=== PATIENT | male | born 1965 | race Caucasian/White ===

== ENCOUNTER 2016-05-31 23:55 | Inpatient (IN) | payer BC ==
--- NOTE | ~2016-05-31 | EGD ---
EGD REPORT [facility] [address] [place]. [address] NAME: CARON SOSA : 61 STATUS : ADM IN PAT#: [id number] AGE: 50 ADM/REG DATE : 06/01/16 MR#: [id number] REPORT SERV DATE: 06/02/16 DICTATED BY: CRYS ALVARADO DATE: 06/02/16 REPORT STATUS : Draft TRANSCRIBED BY: [facility] DATE: 06/02/16 Endoscopy Center Patient Name: Caron Sosa Date of : 1965 Attending MD: CRYS ALVARADO MD Procedure Date No Time: 06/02/2016 Procedure: Colonoscopy Indications: Melena. Patient Profile: Informed consent was obtained from the patient by me prior to the procedure. Risks, benefits, and alternatives were discussed including the risk of bleeding, perforation, infection, reaction to medicine, missed lesion, and cardiopulmonary complications. Referring MD: RG PARR Medicines: Monitored Anesthesia Care Complications: No immediate complications. Procedure: Pre-Anesthesia Assessment: - ASA Grade Assessment: III - A patient with severe systemic disease. After I obtained informed consent, the scope was passed under direct vision. Throughout the procedure, the patient's blood pressure, pulse, and oxygen saturations were monitored continuously. The CF [id number] was introduced through the anus and advanced to the cecum, identified by appendiceal orifice and ileocecal valve. The colonoscope was slowly withdrawn with careful examination all mucosal surfaces including specific attention around flexures and tip deflection behind folds; retroflexion performed in rectum. The colonoscopy was performed without difficulty. The patient tolerated the procedure well. The quality of the bowel preparation was adequate. The ileocecal valve, appendiceal orifice, terminal ileum and rectum were photographed. Findings: The terminal ileum appeared normal. A sessile polyp was found in the transverse colon. The polyp was 5 mm in size. The polyp was removed with a cold biopsy forceps. Resection and retrieval were complete. A flat polyp was found in the descending colon. The polyp was 8 mm in size. The polyp was removed with a cold snare. Resection and retrieval were complete. A sessile polyp was found in the sigmoid colon. The polyp was 5 mm in size. The polyp was removed with a cold biopsy forceps. Resection and retrieval were complete. EGD REPORT [id number] [place]. [address] NAME: CARON SOSA : [birth year] STATUS : ADM IN [facility]#: [id number] AGE: 50 ADM/REG DATE : 06/01/16 MR#: [id number] REPORT SERV DATE: 06/02/16 DICTATED BY: CRYS ALVARADO DATE: 06/02/16 REPORT STATUS : Draft TRANSCRIBED BY: [employer] [facility] DATE: 06/02/16 Green contents throughout including Ti; no blood. Impression: - The examined portion of the ileum was normal. - One 5 mm polyp in the transverse colon. Resected and retrieved. - One 8 mm polyp in the descending colon. Resected and retrieved. - One 5 mm polyp in the sigmoid colon. Resected and retrieved. Recommendation: - Await pathology results. - Repeat colonoscopy for surveillance based on pathology results. - Transfuse 2 units PRBC. - D/c home tomorrow if no further bleeding. - Plan outpatient small bowel pillcam--I will arrange. Procedure Code(s): --- Professional --- 77665, Colonoscopy, flexible, proximal to splenic flexure; with removal of tumor(s), polyp(s), or other lesion(s) by snare technique 70208, 59, Colonoscopy, flexible, proximal to splenic flexure; with biopsy, single or multiple Diagnosis Code(s): --- Professional --- D12.5, Benign neoplasm of sigmoid colon D12.4, Benign neoplasm of descending colon D12.3, Benign neoplasm of transverse colon K92.1, Melena CPT copyright 2013 [employer]. All rights reserved. The codes documented in this report are preliminary and upon assistant editor review may be revised to meet current compliance requirements. CRYS ALVARADO MD 06/02/2016 8:56 AM This report has been signed electronically. Number of Addenda: 0 Note Initiated On: 06/02/2016 8:02 AM Scope Withdrawal Time 0 hours 11 minutes 12 seconds [address] [place] [id number]
--- NOTE | ~2016-05-31 | CN ---
Consultation Report [address] [place]. [address] NAME: CARON SOSA : [birth year] STATUS : ADM IN [facility]#: [id number] AGE: 50 ADM/REG DATE : 06/01/16 MR#: [id number] REPORT SERV DATE: 06/01/16 DICTATED BY: PRESLEY PALOMARES DATE: 06/01/16 REPORT STATUS : Draft TRANSCRIBED BY: MODL DATE: 06/01/16 GI CONSULTATION DATE OF CONSULTATION: 06/01/2016 REASON FOR CONSULTATION: Regarding melena. HISTORY OF PRESENT ILLNESS: This is a 50-year-old man, who was recently traveling and developed melena. He has had melena for the past four to five days. No diarrhea or constipation. No significant abdominal pain other than intermittent right upper quadrant discomfort, very mild and occasional. No GERD or dysphagia. No NSAIDs. No recent history of upper endoscopy. He had colonoscopy four months ago by Dr. Quintanilla, in [place], which showed polyps, but was otherwise negative per patient's report. MEDICAL HISTORY: Colon polyps, hypertriglyceridemia, lung cancer 2010, surgical resection left knee surgery, skin cancer basal cell carcinoma. ALLERGIES: NONE. MEDICATIONS: Tylenol, Lofibra, Christine, multivitamin, Breo Ellipta. FAMILY HISTORY: Remarkable for colorectal cancer in mother. SOCIAL HISTORY: Does not use alcohol or tobacco significantly. REVIEW OF SYSTEMS: A complete review of systems was obtained and negative except that noted in the history of present illness. PHYSICAL EXAMINATION: VITAL SIGNS: He is currently afebrile. Temperature is 97.9, pulse 85, respirations 16, blood pressure 140/78. HEENT: Sclerae anicteric. NECK: Supple without lymphadenopathy. Pharynx is pink without exudate. LUNGS: Clear to auscultation bilaterally. HEART: Regular rate and rhythm. S1, S2 are heard without rubs or gallops. ABDOMEN: Normal bowel sounds. Belly is soft, nontender, nondistended without hepatosplenomegaly. EXTREMITIES: No pedal edema or rash. NEUROLOGIC: Alert and oriented without focal deficit. Muscle exam is nontender. DATA: White blood cell count is 7, hematocrit initially 27.5 now 25, MCV 91, platelets 268. INR 1.2. BUN 13, creatinine 1.01. Liver tests normal. Consultation Report [address] [place]. [address] NAME: CARON SOSA : [birth year] STATUS : ADM IN PAT#: [id number] AGE: 50 ADM/REG DATE : 06/01/16 MR#: [id number] REPORT SERV DATE: 06/01/16 DICTATED BY: PRESLEY PALOMARES DATE: 06/01/16 REPORT STATUS : Draft TRANSCRIBED BY: MODL DATE: 06/01/16 IMPRESSION: 1. Melena, questionable peptic ulcer disease versus other. 2. Family history of colorectal cancer. RECOMMENDATIONS: 1. Monitor hematocrit and transfuse as necessary. 2. Continue Protonix. 3. EGD to follow. If negative, then colonoscopy. CC/JENS Presley Palomares M.D. / [id number] CC: MD Kiel Key M.D.
--- NOTE | ~2016-05-31 | HP ---
History And Physical [address] [facility] [place]. [address] NAME: CARON SOSA : [birth year] STATUS : ADM IN PAT#: [id number] AGE: 50 ADM/REG DATE : 06/01/16 MR#: [id number] REPORT SERV DATE: 06/01/16 DICTATED BY: VENU WELSH DATE: 06/01/16 REPORT STATUS : Draft TRANSCRIBED BY: MODL DATE: 06/01/16 DATE OF ADMISSION: 06/01/2016 CHIEF COMPLAINT: A 50-year-old male presenting with melena for several days and weakness with evidence of anemia. HISTORY OF PRESENT ILLNESS: The patient's history was obtained through careful interview with the patient and . The patient apparently has been on a cruise to the [facility] and [facility] in the [facility] but on 05/28/2016, he began to notice black stool that has persisted over last several days. Finally, the cruise had landed at [facility], and the patient was first evaluated in the hospital there, and it was clear that he was having GI bleed, so he just on day of admission caught a flight back to [place] and immediately was driven here to the emergency department for further evaluation. He describes epigastric discomfort that just came on tonight. He describes it as "just a pain" in quality, 1/10 severity. He has had no bright red blood per rectum. No gastroesophageal reflux disorder. He has felt "dehydrated" and has had dizziness and orthostatic symptoms. He has also had a very poor appetite. Does not enjoy food, has felt ill. No nausea or vomiting. No shortness of breath. No nonsteroidal anti-inflammatory drug use. REVIEW OF SYSTEMS: Otherwise, a 14-point review of systems was obtained and was negative. PAST MEDICAL HISTORY: 1. Lung cancer 2010 but no chemotherapy, no radiation just surgical resection. 2. Elevated triglycerides. 3. Allergies. 4. No cardiac disease. No other lung disease. PAST SURGICAL HISTORY: 1. Left knee surgery. 2. Two-thirds of his right lung removed. 3. Skin cancer basal cell carcinoma. ALLERGIES: NO KNOWN DRUG ALLERGIES. SOCIAL HISTORY: He did smoke for six months when he was 16 years old but has not smoked ever since. No alcohol abuse. He is . Lives in [place], [place]. He has a 20-year- History And Physical [facility] [address] [place]. [address] NAME: CARON SOSA : [birth year] STATUS : ADM IN [facility]#: [id number] AGE: 50 ADM/REG DATE : 06/01/16 MR#: [id number] REPORT SERV DATE: 06/01/16 DICTATED BY: VENU WELSH DATE: 06/01/16 REPORT STATUS : Draft TRANSCRIBED BY: JENS DATE: 06/01/16 old son. 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 FAMILY HISTORY: Cancer. CURRENT MEDICATIONS: Include Tylenol, Lofibra, Christine, multivitamin, Breo Ellipta. PHYSICAL EXAMINATION: VITAL SIGNS: Temperature 98.4, pulse 111, blood pressure 136/75, respiratory rate 18, O2 saturation 98% on room air. GENERAL: A pleasant, cooperative male. No evidence of acute distress. HEENT: Pupils are equal, round, and reactive to light. No conjunctival pallor. No scleral icterus. Nares are patent. Oropharynx is clear of obstruction. Moist mucous membranes. NECK: Trachea midline. No thyromegaly. LYMPH: No cervical lymphadenopathy. No supraclavicular lymphadenopathy. RESPIRATORY: Clear to auscultation at bases. No wheezes, rales, or rhonchi. Normal respiratory effort. CARDIOVASCULAR: Tachycardic, regular rhythm. No murmurs, rubs, or gallops. No extremity edema is appreciated. ABDOMEN: Significant epigastric abdominal pain but no guarding, no rebound. Nontender elsewhere. No hepatosplenomegaly. DERMATOLOGICAL: Warm and dry extremities. No pallor, no cyanosis. PSYCHIATRIC: Normal affect. Good mood. Alert and oriented x3. LABORATORY DATA: White blood cell count 7, hemoglobin 9, hematocrit 27, platelets 268. Sodium 144, potassium 3.7, chloride 107, bicarb 27, BUN 13, creatinine 1.4, and glucose 108. ASSESSMENT AND PLAN: 1. Upper gastrointestinal bleed. Placed on IV proton pump inhibitor drip. Consult critical care paramedic, Dr. Dinh. 2. Acute blood loss anemia. Type and cross and have available for possible transfusion ?. Monitor H and H closely. KPL/MODL Venu Welsh M.D. / [id number] CC: MD Kiel Key M.D.
--- NOTE | ~2016-05-31 | EGD ---
EGD REPORT [facility] [address] [place]. [address] NAME: CARON SOSA : 61 STATUS : ADM IN PAT#: [id number] AGE: 50 ADM/REG DATE : 06/01/16 MR#: [id number] REPORT SERV DATE: 06/01/16 DICTATED BY: CRYS ALVARADO DATE: 06/01/16 REPORT STATUS : Draft [facility] DATE: 06/01/16 Endoscopy Center Patient Name: Caron Sosa Date of : 1965 Attending MD: CRYS ALVARADO MD Procedure Date No Time: 06/01/2016 Procedure: Upper GI endoscopy Indications: Melena; no acid suppression. Patient Profile: Informed consent was obtained from the patient by me prior to the procedure. Risks, benefits, and alternatives were discussed including the risk of bleeding, perforation, infection, reaction to medicine, missed lesion, and cardiopulmonary complications. Referring MD: RG PARR Medicines: Monitored Anesthesia Care Complications: No immediate complications. Procedure: Pre-Anesthesia Assessment: - ASA Grade Assessment: III - A patient with severe systemic disease. After obtaining informed consent, the endoscope was passed under direct vision. Throughout the procedure, the patient's blood pressure, pulse, and oxygen saturations were monitored continuously. The GIF [id number] was introduced through the mouth, and advanced to the third part of duodenum. The endoscope was withdrawn with careful examination all mucosal surfaces including retroflexion stomach. The upper GI endoscopy was accomplished without difficulty. The patient tolerated the procedure well. Findings: The examined duodenum was normal except as below. There was a medium-sized lipoma, 15 mm in diameter, in the third part of the duodenum; soft with normal overlying mucosa; positive pillow sign. The entire examined stomach was normal. The examined esophagus was normal. The esophagus and gastroesophageal junction were examined with white light. There was no visual evidence of Simon's esophagus. Impression: - Normal examined duodenum. - Duodenal lipoma. - Normal stomach. - Normal esophagus. - There is no endoscopic evidence of Simon's esophagus. EGD REPORT [place] [place]. [address] NAME: CARON SOSA : [birth year] STATUS : ADM IN [facility]#: [id number] AGE: 50 ADM/REG DATE : 06/01/16 MR#: [id number] REPORT SERV DATE: 06/01/16 DICTATED BY: CRYS ALVARADO. DATE: 06/01/16 REPORT STATUS : Draft TRANSCRIBED BY: MtoV DATE: 06/01/16 Recommendation: Colonoscopy tomorrow. Procedure Code(s): --- Professional --- 70490, Esophagogastroduodenoscopy, flexible, transoral; diagnostic, including collection of specimen(s) by brushing or washing, when performed (separate procedure) Diagnosis Code(s): --- Professional --- D17.5, Benign lipomatous neoplasm of intra-abdominal organs K92.1, Melena CPT copyright 2013 [employer]. All rights reserved. The codes documented in this report are preliminary and upon foreign exchange clerk review may be revised to meet current compliance requirements. CRYS ALVARADO MD 06/01/2016 10:40 AM This report has been signed electronically. Number of Addenda: 0 Note Initiated On: 06/01/2016 10:18 AM [facility] [address] [place], [place] [address]
--- NOTE | ~2016-05-31 | DS ---
Discharge Summary [facility] [address] [place]. [address] NAME: CARON SOSA : 61 STATUS : DIS IN PAT#: [id number] AGE: 50 ADM/REG DATE : 06/01/16 MR#: [id number] REPORT SERV DATE: 06/04/16 DICTATED BY: MARIO RANGEL DATE: 06/03/16 REPORT STATUS : Draft TRANSCRIBED BY: MODL DATE: 06/03/16 ADMISSION DATE: 06/01/2016 DISCHARGE DATE: 06/03/2016 HISTORY OF PRESENT ILLNESS: The patient is a 50-year-old male with no significant medical history, who presented to the hospital with a complaint of melena with symptomatic anemia. For further details, please refer to H and P dictated by Dr. Good Back 06/01/2016. HOSPITAL COURSE: Upon presentation to the hospital, the patient was diagnosed with upper GI bleed and GI was consulted to assist in management. For further details, please refer to the consultation note dictated by Dr. Palomares on 06/01/2016. The patient was placed n.p.o. and started on a PPI drip and was taken to the GI suite for a colonoscopy. The patient had an upper endoscopy with no significant finding. Subsequent colonoscopy was performed which noted three polyps. A 5 mm polyp was noted in the transverse colon, an 8 mm polyp was noted in the descending colon, and a 5 mm polyp was noted in the sigmoid colon. All polyps found were resected and retrieved and sent to pathology. The patient was returned to the medical suite and was monitored over night. He has remained hemodynamically stable with stabilization of his H and H. Given his hemodynamic stability and completion of workup, the patient will be discharged home to follow up with Gastroenterology. Plan has been discussed with the patient who voices understanding and is agreeable with this plan. DISCHARGE DIAGNOSES: 1. Upper gastrointestinal bleed. 2. Acute blood loss anemia. 3. Obesity. DISCHARGE PHYSICAL EXAMINATION: VITAL SIGNS: Blood pressure 135/85 with a pulse of 68, respirations 16, O2 sat 97% on room air, temperature 98.3. GENERAL: The patient was sitting in bed, in no acute distress. Appears to be stated age. HEENT: Normocephalic, atraumatic. Extraocular motors intact. Moist oral mucosa. Pupils round and reactive to light and accommodation. NECK: Trachea midline and symmetric. No thyromegaly noted. No JVD present. No masses palpated. CHEST: No scars noted. Nontender to palpation. CARDIOVASCULAR: Regular rate and rhythm. S1, S2. No murmurs, rubs, or gallops. LUNGS: Clear to auscultation bilaterally. No wheezing, rhonchi, or rales. ABDOMEN: Obese. Positive bowel sounds. Nontender. Nondistended. EXTREMITIES: No cyanosis. No clubbing. No edema. NEUROLOGIC: Alert and oriented x3. No focal deficits appreciated. PROCEDURES: The patient had an EGD on 06/01/2016. The patient also had a colonoscopy on 06/02/2016. DISPOSITION: The patient will be discharged home to follow up with GI. ACTIVITY: As tolerated. Discharge Summary [address] [address] NAME: CARON SOSA : [birth year] STATUS : DIS IN PAT#: [id number] AGE: 50 ADM/REG DATE : 06/01/16 MR#: [id number] REPORT SERV DATE: 06/04/16 DICTATED BY: MARIO RANGEL DATE: 06/03/16 REPORT STATUS : Draft TRANSCRIBED BY: JENS DATE: 06/03/16 DIET: Regular diet. Greater than 30 minutes was spent in coordinating discharge, dictation of note, medication reconciliation. RONALD/JENS Mario Rangel MD / [id number] CC: MD Kiel Key M.D.
[2016-06-01 00:31] LABS: INTERNATIONAL NORMAL RATI 1.2 UNITS (-); PARTIAL THROMBO TIME 25.4 SEC (22.5-37.2); PROTIME (NOT ORD) 14.8 SEC (12.0-14.5)
[2016-06-01 00:32] LABS: BASOPHILS 0.1 %; BASOPHILS ABSOLUTE 0.01 10/3/uL (0.0-0.16); EOSINOPHILS 1.2 %; EOSINOPHILS ABSOLUTE 0.08 10/3/uL (0.0-0.53); ER CBC TAT 0 Hrs 12 Mins; HEMATOCRIT 27.5 % (40.0-51.0); HEMOGLOBIN 9.2 g/dL (13.6-17.8); IMMATURE GRANULOCYTES 0.4 %; IMMATURE GRANULOCYTES ABSOLUTE 0.03 10/3/uL (0.0-0.11); LYMPHOCYTES 26.6 %; LYMPHOCYTES ABSOLUTE 1.85 10/3/uL (0.67-4.30); MANUAL DIFF NO %; MEAN CORPUS HGB CONC 33.5 g/dL (32.0-36.0); MEAN CORPUSCULAR HEMOGLOB 30.5 pg (26.0-34.0); MEAN CORPUSCULAR VOLUME 91.1 fL (80-100); MEAN PLATELET VOLUME 8.7 fL (9.2-13.0); MONOCYTES 8.1 %; MONOCYTES ABSOLUTE 0.56 10/3/uL (0.21-1.20); NEUTROPHILS 63.6 %; NEUTROPHILS ABSOLUTE 4.42 10/3/uL (2.02-8.40); PLATELET COUNT 268 10/3/uL (150-400); RBC DISTRIBUTION WIDTH 13.4 % (12.0-16.0); RED CELL COUNT 3.02 10/6/uL (4.7-6.1)
[2016-06-01 00:45] LABS: A/G RATIO 1.2 (0.7-1.9); ALBUMIN 3.7 G/DL (3.5-5.0); ALKALINE PHOSPHATASE 38 U/L (45-117); BUN (BLOOD UREA NITROGEN) 13 MG/DL (6-23); CALCIUM, SERUM 9.1 MG/DL (8.5-10.4); CHLORIDE, SERUM 107 MMOL/L (96-112); CO2 (CARBON DIOXIDE) 27 MMOL/L (24-34); CREATININE 1.01 MG/DL (0.70-1.30); GFR AFRICAN AMERICAN 99 ML/MIN (>=60); GFR NON AFRICAN AMERICAN 85 ML/MIN (>=60); GLUCOSE, SERUM 108 MG/DL (60-99); POTASSIUM, SERUM 3.7 MMOL/L (3.5-5.3); SGOT(AST) 29 U/L (5-40); SGPT(ALT) 53 U/L (5-65); SODIUM, SERUM 144 MMOL/L (135-148); TOTAL BILIRUBIN 0.4 MG/DL (0-1.2); TOTAL PROTEIN 6.7 G/DL (6.0-8.5)
[2016-06-01] MEDS ORDERED: ALLEGRA180 PO (03:38)
[2016-06-01] MEDS ORDERED: LOFIBRA160 MG PO (03:38)
[2016-06-01] MEDS ORDERED: MULTIVIT/MIN PO (03:39)
[2016-06-01] MEDS ORDERED: VILANTEROL INH (03:39)
[2016-06-01] MEDS ORDERED: FLUTICASONE FUROATE INH (03:39)
[2016-06-01] MEDS ORDERED: ACET500CAP PO (03:40)
[2016-06-01 07:19] LABS: HEMOGLOBIN 8.3 g/dL (13.6-17.8)
[2016-06-01 11:56] LABS: HEMOGLOBIN 8.5 g/dL (13.6-17.8)
[2016-06-01 12:49] LABS: FOLATE 36.2 NG/ML (>5.2)
[2016-06-01 17:12] LABS: HEMATOCRIT 25.6 % (40.0-51.0); HEMOGLOBIN 8.7 g/dL (13.6-17.8)
[2016-06-01 23:30] LABS: HEMATOCRIT 24.7 % (40.0-51.0); HEMOGLOBIN 8.3 g/dL (13.6-17.8)
[2016-06-02 04:49] LABS: HEMATOCRIT 23.4 % (40.0-51.0); HEMOGLOBIN 7.8 g/dL (13.6-17.8)
[2016-06-02 15:55] LABS: HEMATOCRIT 30.5 % (40.0-51.0); HEMOGLOBIN 10.4 g/dL (13.6-17.8)
[2016-06-03 06:21] LABS: BASOPHILS 0.2 %; BASOPHILS ABSOLUTE 0.01 10/3/uL (0.0-0.16); EOSINOPHILS 2.4 %; EOSINOPHILS ABSOLUTE 0.13 10/3/uL (0.0-0.53); HEMATOCRIT 30.6 % (40.0-51.0); HEMOGLOBIN 10.7 g/dL (13.6-17.8); IMMATURE GRANULOCYTES 0.4 %; IMMATURE GRANULOCYTES ABSOLUTE 0.02 10/3/uL (0.0-0.11); LYMPHOCYTES 25.9 %; LYMPHOCYTES ABSOLUTE 1.43 10/3/uL (0.67-4.30); MEAN CORPUSCULAR HEMOGLOB 30.8 pg (26.0-34.0); MEAN PLATELET VOLUME 8.7 fL (9.2-13.0); MONOCYTES 10.3 %; MONOCYTES ABSOLUTE 0.57 10/3/uL (0.21-1.20); NEUTROPHILS 60.8 %; NEUTROPHILS ABSOLUTE 3.37 10/3/uL (2.02-8.40); PLATELET COUNT 241 10/3/uL (150-400); RBC DISTRIBUTION WIDTH 15.2 % (12.0-16.0); RED CELL COUNT 3.47 10/6/uL (4.7-6.1); WHITE BLOOD CELLS 5.5 10/3/uL (4.5-10.5)
[2016-06-03 06:22] LABS: MEAN CORPUSCULAR VOLUME 88.2 fL (80-100)
[2016-06-03 06:38] LABS: A/G RATIO 1.2 (0.7-1.9); ALBUMIN 3.3 G/DL (3.5-5.0); ALKALINE PHOSPHATASE 36 U/L (45-117); CHLORIDE, SERUM 111 MMOL/L (96-112); CO2 (CARBON DIOXIDE) 24 MMOL/L (24-34); CREATININE 0.95 MG/DL (0.70-1.30); GFR AFRICAN AMERICAN 106 ML/MIN (>=60); GFR NON AFRICAN AMERICAN 92 ML/MIN (>=60); GLOBULIN 2.8 G/DL (2.5-4.1); GLUCOSE, SERUM 93 MG/DL (60-99); POTASSIUM, SERUM 3.6 MMOL/L (3.5-5.3); SGOT(AST) 25 U/L (5-40); SGPT(ALT) 39 U/L (5-65); SODIUM, SERUM 146 MMOL/L (135-148); TOTAL BILIRUBIN 0.5 MG/DL (0-1.2); TOTAL PROTEIN 6.1 G/DL (6.0-8.5)
[2016-06-03 06:44] LABS: BUN (BLOOD UREA NITROGEN) 6 MG/DL (6-23)
[2016-06-03 11:05] LABS: HEMATOCRIT 32.7 % (40.0-51.0); HEMOGLOBIN 11.3 g/dL (13.6-17.8)
== END 2016-06-03 11:33 | disposition home or self-care (01) | DRG 378 ==
LOC: ER 23:55 → 2SO 06-01 04:43
PROVIDERS: Emergency Medicine; Hospitalist; Internal Medicine Gastroenterology
PROC: 0DJ08ZZ Inspection of Upper Intestinal Tract, Via Natural or Artificial Opening Endoscopic (ICD-10-PCS; principal; 2016-06-01 10:30)
PROC: 0DBM8ZZ Excision of Descending Colon, Via Natural or Artificial Opening Endoscopic (ICD-10-PCS; 2016-06-02)
PROC: 0DBN8ZZ Excision of Sigmoid Colon, Via Natural or Artificial Opening Endoscopic (ICD-10-PCS; 2016-06-02)
PROC: 30233N1 Transfusion of Nonautologous Red Blood Cells into Peripheral Vein, Percutaneous Approach (ICD-10-PCS; 2016-06-02)
PROC: 0DBL8ZZ Excision of Transverse Colon, Via Natural or Artificial Opening Endoscopic (ICD-10-PCS; 2016-06-02 08:25)
DX: K92.2 Gastrointestinal hemorrhage, unspecified (principal); D62 Acute posthemorrhagic anemia; Z90.2 Acquired absence of lung [part of]; D17.5 Benign lipomatous neoplasm of intra-abdominal organs; D12.5 Benign neoplasm of sigmoid colon; D12.4 Benign neoplasm of descending colon; D12.3 Benign neoplasm of transverse colon; E66.9 Obesity, unspecified; G47.33 Obstructive sleep apnea (adult) (pediatric); Z68.32 Body mass index [BMI] 32.0-32.9, adult; Z85.118 Personal history of other malignant neoplasm of bronchus and lung
CPT/HCPCS: 36415; 80053; 82607; 82728; 82746; 83540; 83550; 85014; 85018; 85025; 85610; 85730; 86850; 86900; 86901; 86920; 88305; 93005; 94640; 96365; 96375; 99285; A9270-GY; C9113; J1200; J2405; P9016

== ENCOUNTER 2016-06-11 11:07 | Inpatient (IN) | payer BC ==
--- NOTE | ~2016-06-11 | HP ---
History And Physical [place] [address] [facility] [place]. [address] NAME: CARON SOSA : [birth year] STATUS : ADM IN [facility]#: [id number] AGE: 50 ADM/REG DATE : 06/11/16 MR#: [id number] REPORT SERV DATE: 06/12/16 DICTATED BY: MARIO RANGEL DATE: 06/11/16 REPORT STATUS : Draft TRANSCRIBED BY: MODL DATE: 06/11/16 DATE OF ADMISSION: 06/11/2016 CHIEF COMPLAINT: Dark tarry stools. HISTORY OF PRESENTING ILLNESS: Mr. Sosa is a 50-year-old male, who was recently discharged from the hospital on 06/04/2016 after management for upper GI bleed, who presents back to the emergency room with a complaint of melenic stools. The patient states that after his discharge that he was doing relatively well; however, on Friday he noted that his stools started getting tarry, on Friday it worsened prompting him to place a call to his GI specialist to instruct the patient to present to the emergency room. Upon presentation to the emergency room, the patient was diagnosed with upper GI bleed. Hospital Service called to admit the patient for further management. Of note, the patient was recently discharged on 06/04/2016, during the hospitalization the patient had an upper endoscopy which was negative. He also had a colonoscopy which noted three polyps which were resected, at least three retrieved. At the time of my evaluation, the patient corroborated the above story. He states that other than the melenic stool he has no other complaints and he feels well. He denies any lightheadedness, any dizziness, chest pain, palpitations. He denies any nausea, vomiting, diarrhea, fevers or chills. REVIEW OF SYSTEMS: A 14-point review of system was performed. All systems were negative except as noted in the HPI. PAST MEDICAL HISTORY: The patient has a history of upper GI bleed. PAST SURGICAL HISTORY: 1. Left knee surgery. 2. Skin cancer basal cell carcinoma. 3. The patient also had 2/3rd of his right lung removed. ALLERGIES: THE PATIENT HAS NO KNOWN DRUG ALLERGIES. SOCIAL HISTORY: The patient is currently , lives in [place], [place]. He denies any alcohol use. Reports experimental episode of alcohol use which lasted six months, since then the patient quit. No illicit drug use. FAMILY HISTORY: Significant for cancer. HOME MEDICATIONS: 1. Fenofibrate 160 mg p.o. daily. 2. Fexofenadine 180 mg p.o. daily. 3. Multivitamin one tablet p.o. daily. PHYSICAL EXAMINATION: VITAL SIGNS: Blood pressure of 145/92 with a pulse of 110, respirations 16, O2 saturation History And Physical [address] [address] NAME: CARON SOSA : [birth year] STATUS : ADM IN [facility]#: [id number] AGE: 50 ADM/REG DATE : 06/11/16 MR#: [id number] REPORT SERV DATE: 06/12/16 DICTATED BY: MARIO RANGEL DATE: 06/11/16 REPORT STATUS : Draft TRANSCRIBED BY: JENS DATE: 06/11/16 98%, and temperature 98.0. GENERAL: The patient lying in bed, in no acute distress. Appears stated age. HEENT: Normocephalic and atraumatic. Extraocular motors intact. Moist oral mucosa. Anicteric sclerae. Pupils round, reactive to light and accommodation. Trachea midline and symmetric. No JVD noted. No lymphadenopathy present. No thyromegaly present. CHEST: Nontender to palpation. No scars noted. CARDIOVASCULAR: Tachycardic. Regular rhythm. I did not appreciate any murmurs. ABDOMEN: Obese. Positive bowel sounds. Nontender. Nondistended. EXTREMITIES: No cyanosis, no clubbing, no edema. NEURO: Alert and oriented x3. No focal deficits appreciated. LABORATORY DATA: WBC 7.0, hemoglobin 11.8, hematocrit 34.5, with an MCV of 37.8, and platelets 318. Sodium 143, potassium 3.9, chloride 107, bicarb 28, BUN 14, creatinine 0.88, and glucose 92. ASSESSMENT AND PLAN: 1. Upper gastrointestinal bleed. The patient currently hemodynamically stable. He has a Blatchford score of 5 indicating low risk. PLAN: I will consult GI. Place the patient on IV fluids. Place the patient on Protonix drip. Given the patient's low Blatchford score, no indication for urgent endoscopic intervention; however, I will start the patient on a diet now and keep him n.p.o. in case GI would like to do an endoscopy. 1. Hypertension. Blood pressure during last admission was elevated. He presents today with elevated blood pressure meeting diagnostic criteria for hypertension. We will start him on amlodipine 5 mg p.o. daily and monitor. RONALD/JENS Mario Rangel MD / [id number] CC: Eh Reilly Jr, MD
--- NOTE | ~2016-06-11 | CN ---
Consultation Report [facility] [address] [place]. [address] NAME: CARON SOSA : [birth year] STATUS : ADM IN PAT#: [id number] AGE: 50 ADM/REG DATE : 06/11/16 MR#: [id number] REPORT SERV DATE: 06/12/16 DICTATED BY: KAYLA SMYTH DATE: 06/12/16 REPORT STATUS : Draft TRANSCRIBED BY: MODL DATE: 06/12/16 GI CONSULTATION DATE OF CONSULTATION: 06/12/2016 REASON FOR CONSULTATION: Evaluation and management of melena. HISTORY OF PRESENT ILLNESS: Mr. Sosa is a very pleasant 50-year-old male patient, who is known to Dr. Palomares, who was recently inpatient at [facility] from 06/01/2016 until 06/03/2016 for complaints of melena. He had been at that time having symptoms since 05/28/2016 when he began to notice black tarry stools that persisted for multiple days. At that time, he had epigastric discomfort with a decreased appetite, but no nausea or vomiting. During that hospitalization, he did require 2 units of packed red blood cells for a hemoglobin at its lowest point of 7.8. He was discharged on the with a hemoglobin of 11.3 and was having brown stools at that time. He states that he did well up until this past Friday when he began to notice that his stools were turning darker. On Friday and Friday, they were black. He had multiple episodes of tarry stools. He states that he came to the emergency room for further evaluation. When he came in, his hemoglobin was 11.8, presently it is 10.3. He has continued to have 2 to 3 bowel movements overnight that were black. This time he states he has had no abdominal pain. He has had no nausea, no vomiting, no syncope or presyncope. No dizziness. No bright red blood per rectum. During his last hospitalization, Dr. Palomares performed an EGD as well as a colonoscopy. His EGD done on 06/01/2016 showed normal examined duodenum, a duodenal lipoma, normal stomach, normal esophagus. No Simon's esophagus was found. He underwent a colonoscopy the next day with findings of a normal ileum. He had polyps in the transverse, descending, and sigmoid colon that were removed, those turned out in the sigmoid colon were hyperplastic, the rest were tubular adenomatous type. The patient has been held n.p.o. I have discussed with him we will proceed with small-bowel enteroscopy at this time. At discharge, his recommendations were he was going to undergo a small-bowel capsule exam in the outpatient setting with Dr. Palomares that is yet to be arranged. I did discuss the risks, benefits, alternatives, and complications with the patient to include, but not limited to risk of bleeding, perforation, infection, reaction to medication, as well as cardiac and pulmonary side effects; he is agreeable to proceed. PAST MEDICAL HISTORY: Positive for upper GI bleed without a cause being found, lung cancer in 2010 with surgical resection, elevated triglycerides, and hypertension. PAST SURGICAL HISTORY: Left knee surgery, lung resection, and skin cancer removal. SOCIAL HISTORY: Past tobacco. No alcohol. No illicits. . Lives independently. FAMILY HISTORY: Noncontributory from a GI standpoint. ALLERGIES: NONE. Consultation Report [address] [address] NAME: CARON SOSA : [birth year] STATUS : ADM IN [facility]#: [id number] AGE: 50 ADM/REG DATE : 06/11/16 MR#: [id number] REPORT SERV DATE: 06/12/16 DICTATED BY: KAYLA SMYTH DATE: 06/12/16 REPORT STATUS : Draft TRANSCRIBED BY: JENS DATE: 06/12/16 HOME MEDICATIONS: Cefzil, Lofibra, Christine, and multivitamin. REVIEW OF SYSTEMS: A 10-point review of systems has been obtained with pertinent positives being addressed in the history of present illness. VITAL SIGNS: Temperature 98.5, pulse 81, respirations 22, and blood pressure 115/66. PERTINENT LABORATORY DATA: Sodium 145, potassium 4.4, BUN 12, creatinine 0.94, white count 5.5, hemoglobin 10.3 hematocrit 31.6, platelet count 314, and INR 1.2. PHYSICAL EXAMINATION: NEUROLOGIC: Reveals an alert male sitting up in bed with no focal deficits. GENERAL: Cooperative and in no apparent distress. Awake, alert, and oriented x3. HEENT: Head, ears, eyes, nose, and throat are anicteric. Pupils are equal, round, reactive to light and accommodation. Normocephalic and atraumatic. NECK: No JVD. No palpable nodes. LUNGS: Clear anteriorly with normal respiratory effort exhibited. Equal expansion. CARDIOVASCULAR SYSTEM: Regular rate and rhythm. ABDOMEN: Soft and nontender with active bowel sounds in all four quadrants. No organomegaly appreciated. Obese. EXTREMITIES: No edema. Normal distal pulses. SKIN: Warm, dry, and intact. ASSESSMENT AND PLAN: 1. Melena, recent EGD negative on 06/01/2016. 2. Anemia, acute on chronic. He did receive two units of packed red blood cells in his previous hospitalization for a hemoglobin of 7.8. 3. Colon polyps. 4. Hypertension. PLAN: 1. EGD and small-bowel enteroscopy today by Dr. Patel. 2. Follow H and H. 3. He will need a small-bowel capsule endoscopy in the outpatient setting if no bleeding is found. We will follow. DORIAN/JENS LUCIAN Zepeda / [id number] Consultation Report [address] [address] NAME: CARON SOSA : 61 STATUS : ADM IN [facility]#: [id number] AGE: 50 ADM/REG DATE : 06/11/16 MR#: [id number] REPORT SERV DATE: 06/12/16 DICTATED BY: KAYLA SMYTH DATE: 06/12/16 REPORT STATUS : Draft TRANSCRIBED BY: JENS DATE: 06/12/16 CC: Eh Reilly Jr, MD Harrison Sims, M.D.
--- NOTE | ~2016-06-11 | EGD ---
EGD REPORT [facility] [address] [address] NAME: CARON SOSA : 61 STATUS : ADM IN PAT#: [id number] AGE: 50 ADM/REG DATE : 06/11/16 MR#: [id number] REPORT SERV DATE: 06/12/16 DICTATED BY: EH ANTHONY DATE: 06/12/16 REPORT STATUS : Draft TRANSCRIBED BY: [facility] DATE: 06/12/16 Endoscopy Center Patient Name: Caron Sosa Date of : 1965 Attending MD: EH ANTHONY MD Procedure Date No Time: 06/12/2016 Procedure: Small bowel enteroscopy Indications: Melena, GI bleeding source not documented by previous EGD and colonoscopy Referring MD: RG PARR Medicines: Monitored Anesthesia Care Complications: No immediate complications. Estimated blood loss: Minimal. Procedure: Pre-Anesthesia Assessment: - ASA Grade Assessment: III - A patient with severe systemic disease. After obtaining informed consent, the endoscope was passed under direct vision. Throughout the procedure, the patient's blood pressure, pulse, and oxygen saturations were monitored continuously. The GIF [id number] [id number] was introduced through the mouth, and advanced to the third part of duodenum. After obtaining informed consent, the endoscope was passed under direct vision. Throughout the procedure, the patient's blood pressure, pulse, and oxygen saturations were monitored continuously. The SIF Q180 [id number] was introduced through the mouth and advanced to the mid-jejunum. The small bowel enteroscopy was accomplished without difficulty. The patient tolerated the procedure well. The small bowel enteroscopy was accomplished without difficulty. The patient tolerated the procedure well. Findings: The examined esophagus was normal. A Dieulafoy lesion with no bleeding and stigmata of recent bleeding was found in the gastric body. This appeared to be a small ulcer with a clear vessel in the center, already in the process of healing. Fulguration to ablate the lesion to prevent bleeding by bipolar probe was successful. Estimated blood loss was minimal. There was no evidence of significant pathology in the entire examined duodenum. There was no evidence of significant pathology in the entire examined portion of jejunum. Impression: - Dieulafoy lesion of stomach with stigmata of likely EGD REPORT [address] [place]. [address] NAME: CARON SOSA : 61 STATUS : ADM IN [facility]#: [id number] AGE: 50 ADM/REG DATE : 06/11/16 MR#: [id number] REPORT SERV DATE: 06/12/16 DICTATED BY: EH ANTHONY DATE: 06/12/16 REPORT STATUS : Draft TRANSCRIBED BY: [id number] DATE: 06/12/16 recent bleeding. - Examination was otherwise normal. Recommendation: - Return patient to [facility] for ongoing care. - Use Protonix (pantoprazole) 40 mg PO BID for 8 weeks. - Clear liquid diet today. - Check hemoglobin q 12 hours until stable. Procedure Code(s): --- Professional --- 19496, Small intestinal endoscopy, enteroscopy beyond second portion of duodenum, not including ileum; with control of bleeding (eg, injection, bipolar cautery, unipolar cautery, laser, heater probe, stapler, plasma time cycle operator) Diagnosis Code(s): --- Professional --- K31.82, Dieulafoy lesion (hemorrhagic) of stomach and duodenum K92.1, Melena K92.2, Gastrointestinal hemorrhage, unspecified CPT copyright 2013 [employer] [place] [employer]. All rights reserved. The codes documented in this report are preliminary and upon top case assembler review may be revised to meet current compliance requirements. Eh Anthony MD EH ANTHONY MD 06/12/2016 11:29 AM This report has been signed electronically. Number of Addenda: 0 Note Initiated On: 06/12/2016 10:36 AM Scope Withdrawal Time 0 hours 0 minutes 0 seconds [id number] [place] [id number]
--- NOTE | ~2016-06-11 | DS ---
Discharge Summary [facility] [address] [facility] [place]. [address] NAME: CARON SOSA : 61 STATUS : DIS IN PAT#: [id number] AGE: 50 ADM/REG DATE : 06/11/16 MR#: [id number] REPORT SERV DATE: 06/14/16 DICTATED BY: JR. REILLY WILLIAM JOHN DATE: 06/13/16 REPORT STATUS : Draft TRANSCRIBED BY: MODKalen DATE: 06/13/16 ADMISSION DATE: 06/11/2016 DISCHARGE DATE: 06/13/2016 DISCHARGE DIAGNOSES: 1. Upper gastrointestinal bleed. 2. Dieulafoy lesion, status post cauterization and hemostasis. 3. Essential hypertension. 4. Colonic polyps. 5. Obesity with body mass index of 32.7. OPERATIONS, PROCEDURES, AND TREATMENTS: Include: 1. Upper endoscopy done by Dr. Eh Patel on 06/12/2016 with finding of Dieulafoy lesion of the stomach with stigmata of recent bleeding, status post cauterization and hemostasis. Otherwise, exam was room was normal. RECOMMENDATION: Protonix 40 b.i.d. for eight weeks and following H and H until stable. DISCHARGE MEDICATIONS: Include: 1. Norvasc 5 mg orally daily. 2. Cefzil 500 mg orally twice a day for 10 days, this was started on 06/08/2016. 3. Fenofibrate 160 mg orally daily. 4. Christine 180 mg orally daily. 5. Multivitamin tablet orally daily. 6. Protonix 40 mg orally twice a day. HOSPITAL COURSE: The patient was a 50-year-old white male, recently discharged from the hospital on 06/04/2016 after a hospital stay for an upper GI bleed who returned to the hospital with melanotic stools. After discharge on 06/04/2016, the patient did well until the Friday prior to presentation when he noted his stool starting to get tarry. On Friday, it worsened prompting him to call the GI specialist, Dr. Palomares, who instructed the patient to go to the emergency room. During the previous hospitalization, the patient had an upper endoscopy, which was unremarkable and a lower endoscopy which showed three polyps, which were resected and retrieved. Exam at presentation showed a temperature of 98, blood pressure 145/92, heart rate 110, respiratory rate 16. Exam was unremarkable. Laboratory was significant for a hemoglobin of 11.8. The patient was admitted to the Clinical Decision Unit. He was placed on proton pump inhibitor and seen by Gastroenterology. The patient underwent an upper endoscopy with finding of Dieulafoy lesion which was cauterized, and hemostasis was achieved. Recommendation was for b.i.d. proton pump inhibitor for 8 weeks and to follow up with Gastroenterology. Regarding the patient's essential hypertension, was started on Norvasc with good control. The patient will be discharged home today 06/13/2016 in good condition. Discharge Summary [address] [place]. [address] NAME: CARON SOSA : 61 STATUS : DIS IN PAT#: [id number] AGE: 50 ADM/REG DATE : 06/11/16 MR#: [id number] REPORT SERV DATE: 06/14/16 DICTATED BY: JR. REILLY WILLIAM JOHN DATE: 06/13/16 REPORT STATUS : Draft TRANSCRIBED BY: JENS DATE: 06/13/16 DIET: Will be regular. ACTIVITY: As tolerated. FOLLOWUP: Will be with primary care physician, Dr. Kiel Sinclair, in two to four weeks and follow up with Dr. Palomares in six to eight weeks. I have written for 30 day supply of Protonix, which will need to be refilled by Dr. Sinclair. For discharge exam and laboratory, please see daily progress note. This discharge took less than 30 minutes for patient encounter, coordination of care, and documentation. WJF/JENS Eh Reilly Jr, MD / [id number] CC: Eh Reilly Jr, MD Harrison Sims, M.D.
[~2016-06-11 11:07] MED LIST: ACET500CAP PO; ALLEGRA180 PO; FLUTICASONE FUROATE INH; LOFIBRA160 MG PO; MULTIVIT/MIN PO; VILANTEROL INH
[2016-06-11 11:33] LABS: BASOPHILS 0.4 %; BASOPHILS ABSOLUTE 0.03 10/3/uL (0.0-0.16); EOSINOPHILS 2.4 %; EOSINOPHILS ABSOLUTE 0.17 10/3/uL (0.0-0.53); ER CBC TAT 0 Hrs 03 Mins; HEMATOCRIT 34.5 % (40.0-51.0); HEMOGLOBIN 11.8 g/dL (13.6-17.8); IMMATURE GRANULOCYTES 0.6 %; IMMATURE GRANULOCYTES ABSOLUTE 0.04 10/3/uL (0.0-0.11); LYMPHOCYTES 23.7 %; LYMPHOCYTES ABSOLUTE 1.65 10/3/uL (0.67-4.30); MEAN CORPUS HGB CONC 34.2 g/dL (32.0-36.0); MEAN CORPUSCULAR VOLUME 87.8 fL (80-100); MEAN PLATELET VOLUME 8.8 fL (9.2-13.0); MONOCYTES 7.8 %; MONOCYTES ABSOLUTE 0.54 10/3/uL (0.21-1.20); NEUTROPHILS 65.1 %; NEUTROPHILS ABSOLUTE 4.52 10/3/uL (2.02-8.40); RED CELL COUNT 3.93 10/6/uL (4.7-6.1)
[2016-06-11 11:35] LABS: MANUAL DIFF NO %; PLATELET COUNT 318 10/3/uL (150-400)
[2016-06-11 11:40] LABS: INTERNATIONAL NORMAL RATI 1.1 UNITS (-); PARTIAL THROMBO TIME 25.4 SEC (22.5-37.2); PROTIME (NOT ORD) 14.3 SEC (12.0-14.5)
[2016-06-11 11:47] LABS: A/G RATIO 1.4 (0.7-1.9); ALBUMIN 4.1 G/DL (3.5-5.0); ALKALINE PHOSPHATASE 51 U/L (45-117); BUN (BLOOD UREA NITROGEN) 14 MG/DL (6-23); CALCIUM, SERUM 9.5 MG/DL (8.5-10.4); CHLORIDE, SERUM 107 MMOL/L (96-112); CO2 (CARBON DIOXIDE) 26 MMOL/L (24-34); CREATININE 0.88 MG/DL (0.70-1.30); GFR AFRICAN AMERICAN 114 ML/MIN (>=60); GFR NON AFRICAN AMERICAN 99 ML/MIN (>=60); GLUCOSE, SERUM 92 MG/DL (60-99); POTASSIUM, SERUM 3.9 MMOL/L (3.5-5.3); SGOT(AST) 30 U/L (5-40); SGPT(ALT) 57 U/L (5-65); SODIUM, SERUM 143 MMOL/L (135-148); TOTAL BILIRUBIN 0.4 MG/DL (0-1.2); TOTAL PROTEIN 7.1 G/DL (6.0-8.5)
[2016-06-11] MEDS ORDERED: LOFIBRA160 MG PO (11:53)
[2016-06-11] MEDS ORDERED: ALLEGRA180 PO (11:53)
[2016-06-11] MEDS ORDERED: CEFZIL500 MG PO (11:54)
[2016-06-11] MEDS ORDERED: MULTIVITAMI1 PO (11:55)
[2016-06-12 04:22] LABS: BASOPHILS 0.4 %; BASOPHILS ABSOLUTE 0.02 10/3/uL (0.0-0.16); EOSINOPHILS 4.4 %; EOSINOPHILS ABSOLUTE 0.24 10/3/uL (0.0-0.53); HEMATOCRIT 31.6 % (40.0-51.0); HEMOGLOBIN 10.3 g/dL (13.6-17.8); IMMATURE GRANULOCYTES 0.4 %; IMMATURE GRANULOCYTES ABSOLUTE 0.02 10/3/uL (0.0-0.11); LYMPHOCYTES 30.8 %; LYMPHOCYTES ABSOLUTE 1.68 10/3/uL (0.67-4.30); MEAN CORPUS HGB CONC 32.6 g/dL (32.0-36.0); MEAN CORPUSCULAR HEMOGLOB 29.5 pg (26.0-34.0); MEAN PLATELET VOLUME 8.9 fL (9.2-13.0); MONOCYTES 10.1 %; MONOCYTES ABSOLUTE 0.55 10/3/uL (0.21-1.20); NEUTROPHILS 53.9 %; NEUTROPHILS ABSOLUTE 2.94 10/3/uL (2.02-8.40); PLATELET COUNT 314 10/3/uL (150-400); RBC DISTRIBUTION WIDTH 14.4 % (12.0-16.0); RED CELL COUNT 3.49 10/6/uL (4.7-6.1); WHITE BLOOD CELLS 5.5 10/3/uL (4.5-10.5)
[2016-06-12 04:26] LABS: MANUAL DIFF NO %; MEAN CORPUSCULAR VOLUME 90.5 fL (80-100)
[2016-06-12 04:27] LABS: INTERNATIONAL NORMAL RATI 1.2 UNITS (-); PROTIME (NOT ORD) 14.8 SEC (12.0-14.5)
[2016-06-12 04:36] LABS: A/G RATIO 1.3 (0.7-1.9); ALBUMIN 3.4 G/DL (3.5-5.0); ALKALINE PHOSPHATASE 44 U/L (45-117); BUN (BLOOD UREA NITROGEN) 12 MG/DL (6-23); CALCIUM, SERUM 9.1 MG/DL (8.5-10.4); CHLORIDE, SERUM 111 MMOL/L (96-112); CO2 (CARBON DIOXIDE) 27 MMOL/L (24-34); CREATININE 0.94 MG/DL (0.70-1.30); GFR AFRICAN AMERICAN 108 ML/MIN (>=60); GFR NON AFRICAN AMERICAN 93 ML/MIN (>=60); GLOBULIN 2.6 G/DL (2.5-4.1); GLUCOSE, SERUM 97 MG/DL (60-99); POTASSIUM, SERUM 4.4 MMOL/L (3.5-5.3); SGOT(AST) 27 U/L (5-40); SGPT(ALT) 50 U/L (5-65); SODIUM, SERUM 145 MMOL/L (135-148); TOTAL BILIRUBIN 0.4 MG/DL (0-1.2)
[2016-06-12 14:15] LABS: HEMOGLOBIN 10.9 g/dL (13.6-17.8)
[2016-06-13 03:03] LABS: HEMATOCRIT 32.1 % (40.0-51.0); HEMOGLOBIN 10.4 g/dL (13.6-17.8)
[2016-06-13 03:08] LABS: BUN (BLOOD UREA NITROGEN) 9 MG/DL (6-23); CALCIUM, SERUM 8.9 MG/DL (8.5-10.4); CHLORIDE, SERUM 108 MMOL/L (96-112); CO2 (CARBON DIOXIDE) 27 MMOL/L (24-34); CREATININE 0.97 MG/DL (0.70-1.30); GFR AFRICAN AMERICAN 104 ML/MIN (>=60); GFR NON AFRICAN AMERICAN 89 ML/MIN (>=60); GLUCOSE, SERUM 116 MG/DL (60-99); POTASSIUM, SERUM 4.3 MMOL/L (3.5-5.3); SODIUM, SERUM 145 MMOL/L (135-148)
[2016-06-13] MEDS ORDERED: NORV5 PO (10:26)
[2016-06-13] MEDS ORDERED: PROTONIX PO (10:27)
== END 2016-06-13 11:05 | disposition home or self-care (01) | DRG 379 ==
LOC: ER 11:07 → CDU1 17:13
PROVIDERS: Hospitalist; Internal Medicine; Internal Medicine Gastroenterology; Nurse Practitioner Family
PROC: 0D568ZZ Destruction of Stomach, Via Natural or Artificial Opening Endoscopic (ICD-10-PCS; principal; 2016-06-12 11:00)
DX: K31.82 Dieulafoy lesion (hemorrhagic) of stomach and duodenum (principal); I10 Essential (primary) hypertension; D64.9 Anemia, unspecified; E66.9 Obesity, unspecified; Z86.010 Personal history of colon polyps; Z68.32 Body mass index [BMI] 32.0-32.9, adult; Z87.891 Personal history of nicotine dependence; Z85.828 Personal history of other malignant neoplasm of skin; Z87.01 Personal history of pneumonia (recurrent); Z85.118 Personal history of other malignant neoplasm of bronchus and lung; Z90.2 Acquired absence of lung [part of]
CPT/HCPCS: 36415; 80048; 80053; 85014; 85018; 85025; 85610; 85730; 86850; 86900; 86901; 93005; 96365; 96366; 99285; A9270-GY; C9113